=== PATIENT | male | born 1995 | race Caucasian/White ===

== ENCOUNTER 2016-09-23 08:30 | Emergency (ER) | payer SELFPAY ==
[~2016-09-23] VITALS: Ht 175.3 cm; Wt 74.1 kg
[~2016-09-23 08:30] MED LIST: ABILIFY15 MG PO; ADDERALL XR20 MG PO; ALAVERT10 MG PO; MOTRIN600 MG PO; SINGULAIR5 MG PO; ZOLOFT25 MG PO; [UNRECOGNIZED DRUG - OTHER]
[2016-09-23] MEDS ORDERED: CIPRO750 MG PO (09:40)
[2016-09-23] MEDS ORDERED: KEFLEX500 MG PO (09:40)
[2016-09-23 10:03] VITALS: BP 155/78
== END 2016-09-23 10:05 | disposition home or self-care (01) ==
LOC: EME 08:30
PROC: 3E0234Z Introduction of Serum, Toxoid and Vaccine into Muscle, Percutaneous Approach (ICD-10-PCS; principal; 2016-09-23)
DX: S91.332A Puncture wound without foreign body, left foot, initial encounter (principal); W45.0XXA Nail entering through skin, initial encounter; Z23 Encounter for immunization; F17.200 Nicotine dependence, unspecified, uncomplicated
CPT/HCPCS: 73630; 99281; 99283

== ENCOUNTER 2016-09-26 12:08 | Emergency (ER) | payer SELFPAY ==
[~2016-09-26] VITALS: Ht 175.3 cm; Wt 75.0 kg
[~2016-09-26 12:08] MED LIST changes: +CIPRO750 MG PO; +KEFLEX500 MG PO
[2016-09-26 16:12] VITALS: BP 150/73
== END 2016-09-26 16:15 | disposition home or self-care (01) ==
LOC: EME 12:08
DX: M79.672 Pain in left foot (principal); S91.332D Puncture wound without foreign body, left foot, subsequent encounter; L08.9 Local infection of the skin and subcutaneous tissue, unspecified; W45.0XXD Nail entering through skin, subsequent encounter; F17.200 Nicotine dependence, unspecified, uncomplicated
CPT/HCPCS: 87070; 87075; 87077; 87186; 87205; 99281; 99283

== ENCOUNTER 2017-06-19 16:23 | Emergency (ER) | payer SELFPAY ==
[~2017-06-19] VITALS: Ht 175.3 cm; Wt 74.1 kg
[2017-06-19 17:02] VITALS: BP 149/91
== END 2017-06-19 18:07 | disposition left against medical advice (07) ==
LOC: EME 16:23
DX: R11.10 Vomiting, unspecified (principal); Z53.21 Procedure and treatment not carried out due to patient leaving prior to being seen by health care provider
CPT/HCPCS: 80053; 81003; 85027